=== PATIENT | female | born 1960 | race Two or more races ===

== ENCOUNTER 2019-03-26 23:46 | Emergency (ER) | payer MEDICAID ==
[~2019-03-26] VITALS: Ht 167.6 cm; Wt 65.8 kg
[2019-03-26] MEDS ORDERED: HALOPERIDOL LACTATE INJ 5 MG/ML VIAL ONE (23:52)
[2019-03-26] MEDS ORDERED: LORAZEPAM INJ 2 MG/ML VIAL ONE (23:52)
[2019-03-26] MEDS ORDERED: diphenhydrAMINE HCL 50 MG/ML VIAL ONE (23:52)
--- NOTE | 2019-03-26 23:52 | NUR ---
PT BIBRA FROM HOME. PER , DAUGHTER CALLED 911. PT HAS BEEN DRINKING ALCOHOL AND STATING "I WANT TO , I WANT TO . KILL ME NOW. GIVE ME A GUN I'LL SHOOT MYSELF". PER , PT HAS ACCESS TO A GUN AT HOME. PT VERY AGGRESSIVE ON ARRIVAL. YELLING AT STAFF AND BEING UNCOOPERATIVE. SECURITY AT BEDSIDE ON ARRIVAL. VITAL SIGNS STABLE. WILL CONTINUE TO MONITOR
[2019-03-26] MEDS: HALOPERIDOL LACTATE INJ 5 MG/ML VIAL IM ONE (23:59)
[2019-03-27] MEDS ORDERED: diphenhydrAMINE HCL 50 MG/ML VIAL IM ONE
[2019-03-27] MEDS ORDERED: LORAZEPAM INJ 2 MG/ML VIAL IM ONE
[2019-03-27] MEDS ORDERED: HALOPERIDOL DECANOATE IM 100 MG/ML AMPUL IM ONE
--- NOTE | 2019-03-27 | NUR ---
HALDOL ADMINISTERED IM L THIGH, NOT CROSSING OVER TO [facility] BUT ORDERED BY DR. BECK
[2019-03-27] MEDS: HALOPERIDOL LACTATE INJ 5 MG/ML VIAL IM ONE (00:05)
[2019-03-27 00:11] LABS: BASOPHILS % (AUTO) 0.4 % (0.0-2.0); EOSINOPHILS % (AUTO) 1.9 % (0.0-6.0); HEMATOCRIT 40 % (33-45); HEMOGLOBIN 13.5 g/dL (11.5-14.8); LYMPHOCYTES # (AUTO) 2.3 /CMM (0.8-4.8); MEAN CORPUSCULAR HGB CONC 34 g/dl (31.0-36.0); MEAN CORPUSCULAR VOLUME 100 fL (82-100); MONOCYTES # (AUTO) 0.2 /CMM (0.1-1.30); MONOCYTES % (AUTO) 5.4 % (2.0-12.0); NEUTROPHILS # (AUTO) 1.7 /CMM (1.8-8.9); NEUTROPHILS % (AUTO) 39.3 % (43.0-81.0); PLATELET COUNT (AUTO) 309 /CMM (150-450); RED BLOOD CELL COUNT(AUTO) 3.98 MIL/uL (4.0-5.2); WHITE BLOOD COUNT (AUTO) 4.4 K/uL (4.3-11.0)
[2019-03-27 00:19] LABS: CALCIUM, SERUM 8.1 mg/dL (8.5-10.1); CREATININE 0.8 mg/dL (0.6-1.3)
[2019-03-27 00:30] LABS: ALBUMIN 3.8 g/dL (3.4-5.0); BILIRUBIN,DIRECT 0.1 mg/dL (0.0-0.2); BILIRUBIN,TOTAL 0.4 mg/dL (0.2-1.0); TOTAL PROTEIN, SERUM 7.2 g/dL (6.4-8.2)
--- NOTE | 2019-03-27 00:30 | NUR ---
PT UNABLE TO PROVIDE URINE SAMPLE AT THIS TIME. PER DR. BECK, CATH NOT NECESSARY
[2019-03-27 00:31] LABS: SALICYLATE 0.2 mg/dL (2.8-20.0)
--- NOTE | 2019-03-27 01:15 | NUR ---
PT UNABLE TO PROVIDE URINE SAMPLE AT THIS TIME. MD BRADSHAW
--- NOTE | 2019-03-27 02:02 | NUR ---
PT RESTING COMFORTABLY IN BED. VITAL SIGNS STABLE. NO ACUTE DISTRESS NOTED AT THIS TIME. WILL CONTINUE TO MONITOR.
--- NOTE | 2019-03-27 04:39 | NUR ---
PT RESTING COMFORTABLY IN BED. VITAL SIGNS STABLE. NO ACUTE DISTRESS NOTED AT THIS TIME. WILL CONTINUE TO MONITOR
--- NOTE | 2019-03-27 06:26 | NUR ---
PT RESTING COMFORTABLY IN BED. VITAL SIGNS STABLE. CALM AND COOPERATIVE. SITTER AT BEDSIDE
--- NOTE | 2019-03-27 10:11 | NUR ---
PT ASLEEP ON BED EASILY AROUSABLE, V/S STABLE, KEPT RESTED AND COMFORTABLE, WILL CONTINUE TO MONITOR.
--- NOTE | 2019-03-27 13:40 | NUR ---
MAGDA MILLER AT BEDSIDE FOR EVAL.
--- NOTE | 2019-03-27 13:50 | NUR ---
Social service consult requested by Dr. Umana regarding pt. having access to a gun. Pt. is a 58 year old female who was brought in by ambulance because pt's daughter called 911 due to pt. being belligerent and screaming. Patient was screaming that she wants to and to give her a gun. EMS reports that she was drinking. Prior to meeting with the pt. ANGELA contacted pt's daughter Mary who informed SW that her mom has been drinking and threatening to kill herself on and off for the past few months. She stated her mom has access to a gun at her workplace. 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 Pt's daughter informed ANGELA that she is on her way to the hospital and would like to meet with ANGELA and Dr. Umana. She informed ANGELA she has several audio recordings regarding her mother being out of control and stating she is going to kill herself. ANGELA then met with pt's daughter and Dr. Umana. Due to pt. having access to a gun and safety concerns, pt. will be evaluated and cleared by crisis c iron worker Deonte Hsieh. ANGELA contacted Art who informed ANGELA that he will be there shortly to assess the pt. ANGELA met with pt. bedside. Pt. is alert and oriented x 4. Pt. states she lives with her daughter and sister in [place]. Pt. is currently denying suicidal and homicidal ideations. Pt. is also denying having access to a gun stating, " the guns are no longer there." Pt. states she drinks 3 to 4 shots of hard liquor daily and stated, " I am not an alcoholic." Pt. denies any drug or cigarette use at this time. ANGELA offered pt. referrals to mental health clinics and psychiatrists, however pt. declined stating, " I don't think I need it." Pt. to be discharged back home once pt. has been evaluated by mainspring strip gauger Deonte Hsieh.
--- NOTE | 2019-03-27 14:53 | NUR ---
ART CERTIFIED SURGICAL ASSISTANT AT BEDSIDE FOR EVAL.
--- NOTE | 2019-03-27 15:39 | NUR ---
Patient discharged to home in stable condition. Written and verbal after care instructions given. Patient verbalizes understanding of instruction.
[2019-03-27 15:40] VITALS: BP 124/66
== END 2019-03-27 15:44 | disposition home or self-care (01) ==
LOC: ER 23:50
DX: F10.129 Alcohol abuse with intoxication, unspecified (principal); Y90.0 Blood alcohol level of less than 20 mg/100 ml
CPT/HCPCS: 36415 ×2; 80048; 80076; 80307 ×2; 80329; 85025; 96372 ×3; 99283; G0480; J1200; J1630; J2060; J1631

== ENCOUNTER 2021-05-05 20:58 | Emergency (ER) | payer MEDICAID ==
[~2021-05-05] VITALS: Ht 160 cm; Wt 63.5 kg
--- NOTE | 2021-05-05 22:09 | NUR ---
CALLED CT FOR PATIENT
--- NOTE | 2021-05-05 22:26 | NUR ---
PATIENT TAKEN TO CT
[2021-05-05] MEDS ORDERED: LIDOCAINE 1%-EPI 1:100,000 20 ML VIAL ONE (22:41)
[2021-05-05 22:55] VITALS: BP 128/86
--- NOTE | 2021-05-05 22:55 | NUR ---
Patient discharged to home in stable condition. Written and verbal after care instructions given. Patient verbalizes understanding of instruction.
== END 2021-05-05 22:55 | disposition home or self-care (01) ==
LOC: ER 21:04
DX: S01.81XA Laceration without foreign body of other part of head, initial encounter (principal); R51.9 Headache, unspecified; Z88.6 Allergy status to analgesic agent; Z88.5 Allergy status to narcotic agent; W01.0XXA Fall on same level from slipping, tripping and stumbling without subsequent striking against object, initial encounter; Y93.89 Activity, other specified; Y92.89 Other specified places as the place of occurrence of the external cause; Y99.8 Other external cause status
CPT/HCPCS: 12013; 70450; 99284; A6403; J3490

== ENCOUNTER 2023-02-21 11:09 | Emergency (ER) | payer MEDICAID ==
[~2023-02-21] VITALS: Ht 160 cm; Wt 63.5 kg
--- NOTE | 2023-02-21 11:25 | NUR ---
Note tamicadixon in EDM - 02/21/23 at 1143 by NATHANIEL BIBS FRIEND, ELYSIAMICHELLE TRIPPING AND USING HE R WRIST TO BREAK HER FALL C/O RIGHT WRIST INJURY WITH DEFORMITY CONSISTENT W/ WRIST FRACTURE. PAIN 8/10 ON PAIN SCALE. ICE APLPIED TO SITE. VITALS ARE WITHIN NORMAL LIMITS. AWAITING MD JEFF.
--- NOTE | 2023-02-21 11:25 | NUR ---
BIB FRIEND, AFTER TRIPPING AND USING HE R WRIST TO BREAK HER FALL C/O RIGHT WRIST INJURY WITH DEFORMITY CONSISTENT W/ WRIST FRACTURE. PAIN 8/10 ON PAIN SCALE. ICE APLPIED TO SITE. VITALS ARE WITHIN NORMAL LIMITS. AWAITING MD JEFF.
--- NOTE | 2023-02-21 11:42 | NUR ---
DR ABDI AT BEDSIDE
--- NOTE | 2023-02-21 12:02 | NUR ---
X RAY AT BEDSIDE
[2023-02-21] MEDS ORDERED: LIDOCAINE 2% 20 ML MDV TP ONE (15:00)
[2023-02-21] MEDS ORDERED: LIDOCAINE 2% 20 ML MDV ONE (15:06)
[2023-02-21] MEDS ORDERED: IBUP-1955 PO (15:57)
[2023-02-21 16:41] VITALS: BP 137/74; TEMP 98.5; O2SAT 100
== END 2023-02-21 16:41 | disposition home or self-care (01) ==
LOC: ER 11:14
DX: S62.011A Displaced fracture of distal pole of navicular [scaphoid] bone of right wrist, initial encounter for closed fracture (principal); Z79.899 Other long term (current) drug therapy; Z88.5 Allergy status to narcotic agent; Z88.1 Allergy status to other antibiotic agents; W18.39XA Other fall on same level, initial encounter; Y93.89 Activity, other specified; Y92.89 Other specified places as the place of occurrence of the external cause; Y99.8 Other external cause status
CPT/HCPCS: 29125; 73080; 73110; 99284; J3490

== ENCOUNTER 2023-03-12 10:49 | Emergency (ER) | payer MEDICAID ==
[~2023-03-12] VITALS: Ht 160 cm; Wt 64.4 kg
[~2023-03-12 10:49] MED LIST: IBUP-1955 PO
[2023-03-12 11:03] VITALS: BP 120/70; TEMP 98.3
[2023-03-12 11:36] VITALS: O2SAT 97
== END 2023-03-12 12:40 | disposition home or self-care (01) ==
LOC: ER 10:52
DX: S62.101D Fracture of unspecified carpal bone, right wrist, subsequent encounter for fracture with routine healing (principal); Z88.8 Allergy status to other drugs, medicaments and biological substances; X58.XXXD Exposure to other specified factors, subsequent encounter

== ENCOUNTER 2023-04-03 18:54 | Emergency (ER) | payer MEDICAID ==
[~2023-04-03] VITALS: Ht 160 cm; Wt 63.5 kg
[2023-04-03 20:25] VITALS: BP 128/76; TEMP 98.6; O2SAT 99
== END 2023-04-03 20:26 | disposition home or self-care (01) ==
LOC: ER 18:59
DX: S62.101D Fracture of unspecified carpal bone, right wrist, subsequent encounter for fracture with routine healing (principal); Z88.0 Allergy status to penicillin; X58.XXXD Exposure to other specified factors, subsequent encounter